=== PATIENT | male | born 1940 | race Caucasian/White ===

== ENCOUNTER 2020-03-24 07:43 | Day surgery (SDC) | payer MEDICARE ==
[~2020-03-24 07:43] MED LIST: Midazolam 1 MG/ML 2 ML SDV ONE; Propofol 200 MG/20 ML SDV ONE; fentaNYL 100 MCG/2 ML SDV ONE
[2020-03-24] MEDS ORDERED: Sodium Chloride 0.9% 1,000 ML IV SCH (08:45)
--- NOTE | 2020-03-24 12:54 | OR ---
DATE OF PROCEDURE: 03/24/2020 SURGEON: Jaspreet Wooten MD PROCEDURE: Colonoscopy. FINDINGS: 1. Diverticulosis, mild. 2. No old or new blood. 3. Patulous area on the anal area, not actively bleeding. COMPLICATIONS: None. NET SOFTWARE DEVELOPER: None. ANESTHESIA: MAC. PREOPERATIVE DIAGNOSIS: Rectal bleeding. POSTOPERATIVE DIAGNOSIS: Rectal bleeding. RISKS: Risks, benefits, alternatives, and limitations including, but not limited to infection, bleeding, and perforation were explained to the patient, and they wished to proceed. PROCEDURE IN DETAIL: The patient was placed in left lateral decubitus position. Digital rectal exam was performed without abnormality. The scope was introduced and advanced atraumatically to the ileocecal valve. A photo was taken of this. Scope was brought back through the ascending, transverse, descending colon, and retroflexed. No old or new blood. The patient did have diverticulosis, would be described as mild, limited to sigmoid colon without evidence of diverticulitis or bleeding. No prominent hemorrhoids. Of note, on anal exam, there was a small patulous area noted. The prep was acceptable. Approximately 95% of the luminal surface could be seen. No polyps. No abnormalities. The patient will be scheduled for anal biopsy of this area to rule out any squamous cell carcinoma. Jaspreet Wooten MD /[id number]
== END 2020-03-24 10:40 | disposition home or self-care (01) ==
LOC: JP.SDS 07:43
PROVIDERS: ATTEND Surgery
DX: K57.31 Diverticulosis of large intestine without perforation or abscess with bleeding (principal); F17.200 Nicotine dependence, unspecified, uncomplicated; J44.9 Chronic obstructive pulmonary disease, unspecified; I10 Essential (primary) hypertension; Z86.73 Personal history of transient ischemic attack (TIA), and cerebral infarction without residual deficits
CPT/HCPCS: 45378; J2250; J2704; J3010; J7030

== ENCOUNTER 2020-03-28 06:55 | Day surgery (SDC) | payer MEDICARE ==
[~2020-03-28 06:55] MED LIST changes: +Bupivacaine 0.5% 50 ML MDV ONE; +Lidocaine 1% with EPINEPHrine 1:100,000 50 ML MDV ONE; +Lidocaine 2% Jelly 30 ML Tube ONE; -Midazolam 1 MG/ML 2 ML SDV ONE; -Propofol 200 MG/20 ML SDV ONE; -fentaNYL 100 MCG/2 ML SDV ONE
[2020-03-28] MEDS ORDERED: fentaNYL 100 MCG/2 ML SDV ONE (07:24)
[2020-03-28] MEDS ORDERED: Propofol 200 MG/20 ML SDV ONE (07:24)
[2020-03-28] MEDS ORDERED: Midazolam 1 MG/ML 2 ML SDV ONE (07:24)
[2020-03-28] MEDS ORDERED: Sodium Chloride 0.9% 1,000 ML IV SCH (07:30)
[2020-03-28] MEDS ORDERED: ceFAZolin 2 GM in Premix Bag 1 BAG IV ONE (07:30)
[2020-03-28] MEDS ORDERED: metroNIDAZOLE/Normal Saline 500 MG in Premix Bag 1 BAG IV ONE (08:00)
--- NOTE | 2020-03-28 11:31 | OR ---
DATE OF PROCEDURE: 03/28/2020 SURGEON: Jaspreet Wooten MD PROCEDURE: Excision of anal lesion. COMPLICATIONS: None. HAND ETCHER HELPER: None. ANESTHESIA: MAC. PREOPERATIVE DIAGNOSIS: Anal lesion concerning for malignancy. POSTOPERATIVE DIAGNOSIS: Anal lesion concerning for malignancy. INDICATIONS: A 79-year-old male. During colonoscopy, the patient was noted to have a hemorrhoidal tag, which had a bulbous distal tip to it. This was a concern for potential malignancy. Therefore, he was scheduled for excision of this. We discussed risks, benefits, alternatives, and limitations including but not limited to infection, bleeding, and chronic pain were explained. The patient wished to proceed. PROCEDURE IN DETAIL: The patient was placed in prone artemio-knife position. The lesion was identified, anesthetized with lidocaine, and transected using an Aqua[employer]antys PlasmaBlade. No abnormal bleeding was noted. This was sent to Pathology. The patient tolerated the procedure well. Jaspreet Wooten MD /[id number]
== END 2020-03-28 09:59 | disposition home or self-care (01) ==
LOC: JP.SDS 06:55
PROVIDERS: ATTEND Surgery
DX: K62.89 Other specified diseases of anus and rectum (principal); I11.0 Hypertensive heart disease with heart failure; I50.20 Unspecified systolic (congestive) heart failure; F17.200 Nicotine dependence, unspecified, uncomplicated; J44.9 Chronic obstructive pulmonary disease, unspecified
CPT/HCPCS: 88305; J0690; J2250; J2704; J3010; J3490; J7030